=== PATIENT | female | born 1965 | race Caucasian/White ===

== ENCOUNTER 2016-11-14 00:15 | Emergency (ER) | payer SELFPAY ==
[2016-11-14 00:33] VITALS: BP 138/73; TEMP 98.6; O2SAT 98
--- NOTE | 2016-11-14 00:34 | ED.PDOC ---
History of Present Illness - General Chief Complaint: ENT Problem Stated Complaint: Bug in ear Time Seen by Provider: 11/14/16 00:25 Source: patient Exam Limitations: no limitations - History of Present Illness Initial Comments: PT CONCERNED SHE MIGHT HAVE A BUG IN HER LEFT EAR. IT FEELS IRRITATED TONIGHT. Timing/Duration: this evening Severity: moderate EENT Location: ear (L) Prearrival Treatment: no prearrival treatment Improving Factors: nothing Worsening Factors: nothing Associated Symptoms: denies symptoms Review of Systems - Review of Systems Constitutional: States: no symptoms reported EENTM: Denies: ear discharge, nose congestion, throat pain Respiratory: States: no symptoms reported Cardiology: States: no symptoms reported Gastrointestinal/Abdominal: States: no symptoms reported Genitourinary: States: no symptoms reported Musculoskeletal: States: no symptoms reported Skin: States: no symptoms reported Neurological: States: no symptoms reported Endocrine: States: no symptoms reported Hematologic/Lymphatic: States: no symptoms reported All other Systems: Reviewed and Negative Past Medical History (General) - Patient Medical History Hx MRSA: Yes - Leg 2008; Buttock 2011 MRSA Source:: Wound Family Medical History - Family History Mother Family History: Unknown Physical Exam - Physical Exam General Appearance: Alert, Obese Eye Exam: bilateral normal Ear Exam: bilateral ear: auricle normal, canal normal, TM normal - EXCEPT MODERATE BL CERMINOSIS. Nasal Exam: normal inspection Throat Exam: normal mouth inspection, pharynx normal Neck: non-tender, supple Cardiovascular/Respiratory: regular rate, rhythm, no M/R/G Neurologic: plater helper II-XII nml as tested, no motor/sensory deficits, alert Skin Exam: normal color Progress - Progress Progress: 11/14/16 00:41 NO FOREIGN BODY IN EAR, JUST MODERATE CERUMEN. Departure - Departure Clinical Impression: Ceruminosis Disposition: Discharge to Home or Self Care Condition: Good Instructions: DI for Cerumen Impaction Diet: resume usual diet Activity: increase activity as tolerated Referrals: Glenda Cabrera NP [Primary Care Provider] - 1-2 Weeks Additional Instructions: Please instill Debrox (earwax removal) drops into each ear and flush with warm water daily for 1 week to remove the wax.
== END 2016-11-14 00:50 | disposition home or self-care (01) ==
LOC: ER 00:15
DX: H61.23 Impacted cerumen, bilateral (principal)

== ENCOUNTER → 2019-12-07 | Outpatient (CLI) | payer SELFPAY | LOC: YCFC.O 09:27 | PROVIDERS: ATTEND Nurse Practitioner | DX: R79.89 Other specified abnormal findings of blood chemistry (principal); E11.9 Type 2 diabetes mellitus without complications; R03.0 Elevated blood-pressure reading, without diagnosis of hypertension ==

== ENCOUNTER → 2020-03-01 | Outpatient (CLI) | payer SELFPAY | LOC: YCFC.O 08:07 | PROVIDERS: ATTEND Family Medicine | DX: E02 Subclinical iodine-deficiency hypothyroidism (principal) ==

== ENCOUNTER 2020-03-18 09:29 | Emergency (ER) | payer SELFPAY ==
[2020-03-18] MEDS ORDERED: SODIUM CHLORIDE 0.9% (FLUSH) 10 ML SYG IV PRN (09:37)
[2020-03-18] MEDS ORDERED: SODIUM CHLORIDE 0.9% 1000ML 1,000 ML IVS ONE (09:53)
--- NOTE | 2020-03-18 09:55 | ED.PDOC ---
History of Present Illness - General Time Seen by Provider: 03/18/20 09:37 Source: patient, RN notes reviewed, Vital Signs reviewed Exam Limitations: no limitations - History of Present Illness Initial Comments: 54 yo F with pmh of HTN and DM comes in with intermittent reflux symptoms for the past three days. States she was here just to have her bp, check because at home it was 170/89. Is compliant with medication. no headache, change in vision, shortness of breath. no current chest pain. Takes antacid which does help her symptoms. States chest pain in substernal when it does occur, without radiation or association of other symptoms. no fever, no cough. Both parents healthy without heart disease. states she is dehydrated often. denies black orbloody bm. Timing/Duration: days Severity/Quality: ingestion Location: substernal Chest Pain Radiation: no radiation Activities at Onset: rest Prior Chest Pain/Cardiac Workup: no prior chest pain, no prior cardiac workup Allergies/Adverse Reactions: Allergies NO KNOWN ALLERGY Allergy (Verified 03/18/20 10:05) Home Medications: Ambulatory Orders Famotidine 20 mg PO BID PRN #20 tab 03/18/20 Review of Systems - Review of Systems Constitutional: Denies: chills, fever, malaise EENTM: Denies: blurred vision, throat pain Respiratory: Denies: cough, short of breath Cardiology: States: chest pain. Denies: edema, palpitations, syncope Gastrointestinal/Abdominal: States: other - heart burn. Denies: abdominal pain, diarrhea, nausea, vomiting Genitourinary: Denies: dysuria, frequency Musculoskeletal: Denies: back pain, muscle pain Skin: Denies: rash Neurological: Denies: headache, numbness, weakness Endocrine: Denies: unexplained weight gain, unexplained weight loss Hematologic/Lymphatic: Denies: blood clots, easy bleeding, easy bruising Past Medical History (General) - Patient Medical History Hx Seizures: No Hx Stroke: No Hx Dementia: No Hx Asthma: No Hx of COPD: No Hx Cardiac Disorders: No Hx Congestive Heart Failure: No Hx Pacemaker: No Hx Hypertension: Yes Hx Diabetes: Yes Hx Renal Disease: No Hx Cancer: No Hx of HIV: No Hx Hepatitis B: No Hx Hepatitis C: No Hx MRSA: Yes - Leg 2008; Buttock 2011 MRSA Source:: Wound - Social History Hx Alcohol Use: No Family Medical History - Family History Mother Living Status: Still Living Hx Cardiac Disease: No Hx Family Diabetes: Yes - father Hx Family;Other: high cholesterol - mother Physical Exam - Physical Exam General Appearance: Alert, Comfortable, No apparent distress, Obese, Well Developed, Well Groomed, Well Hydrated, Well Nourished Eyes, Ears, Nose, Throat Exam: normal ENT inspection Neck: non-tender, full range of motion, supple, normal inspection Respiratory: chest non-tender, lungs clear, normal breath sounds, no respiratory distress, no accessory muscle use Cardiovascular/Chest: normal peripheral pulses, regular rate, rhythm, no edema, no gallop, no JVD, no murmur Peripheral Pulses: radial,right: 2+, radial,left: 2+, dorsalis pedis,right: 2+, dorsalis pedis,left: 2+ Gastrointestinal/Abdominal: normal bowel sounds, non tender, soft Extremity: normal range of motion, non-tender, normal inspection, no pedal edema, no calf tenderness, normal capillary refill Neurologic: no motor/sensory deficits, alert, normal mood/affect, oriented x 3 Skin Exam: normal color, warm/dry Progress - Progress Progress: 03/18/20 10:41 cardiac score 3. 03/18/20 12:32 partial ddx: pneumonia, reflux, cad, pancreatitis, gallstones, others considered. currently no symptoms of chest pain or reflux only came in due to blood pressure being 170. currently 139 systolic. The data reviewed when caring for this patient included: nurse notes, prior records, etc. The history and assessments from nurses notes were reviewed and considered, and the patient's home medication list was also reviewed and considered. My assessment and the results of testing completed here in the ED were discussed with the patient/family. All questions were answered, and they express understanding of my assessment and the plan. They have been instructed to return if their symptoms worsen, and have been asked to follow up with their primary care physician to recheck today's presenting complaint. Strict return precautions given. I have reviewed medication, benefits, alternatives and side effects. Patient decided to proceed with medication. Bessie Sanders DO #[id number] - Results/Orders Results/Orders: 03/18/20 09:37 Sodium Chloride 0.9% (Flush) [Saline Flush Syringe] 10 ml IV PRN PRN EKG Stat Pulse Ox Stat Laboratory Results WBC 7.9 K/mm3 (4.8-10.8) 03/18/20 09:44 RBC 5.01 M/mm3 (4.20-5.40) 03/18/20 09:44 Hgb 14.1 gm/dL (12.0-16.0) 03/18/20 09:44 Hct 42.4 % (36.0-47.0) 03/18/20 09:44 MCV 84.7 fl (81.0-99.0) 03/18/20 09:44 MCH 28.2 pg (27.0-31.0) 03/18/20 09:44 MCHC 33.3 g/dL (33.0-37.0) 03/18/20 09:44 RDW 13.9 % (11.5-14.5) 03/18/20 09:44 Plt Count 285 K/mm3 (130-400) 03/18/20 09:44 MPV 8.8 fl (7.40-10.4) 03/18/20 09:44 Absolute Neuts (auto) 5.90 K/uL (1.8-6.8) 03/18/20 09:44 Absolute Lymphs (auto) 1.40 K/uL (1.0-3.4) 03/18/20 09:44 Absolute Monos (auto) 0.50 K/uL (0.2-0.8) 03/18/20 09:44 Absolute Eos (auto) 0.20 K/uL (0.0-0.4) 03/18/20 09:44 Absolute Basos (auto) 0.10 K/uL (0.0-0.1) 03/18/20 09:44 Neutrophils % 74.2 % (42.0-78.0) 03/18/20 09:44 Lymphocytes % 17.2 % (20.0-50.0) L 03/18/20 09:44 Monocytes % 6.0 % (2.0-9.0) 03/18/20 09:44 Eosinophils % 1.9 % (1.0-5.0) 03/18/20 09:44 Basophils % 0.7 % (0.0-2.0) 03/18/20 09:44 PT 10.1 SECONDS (9.0-10.9) 03/18/20 09:44 INR 1.02 (0.9-1.15) 03/18/20 09:44 PTT (SP) 24.0 SECONDS (21.8-31.6) 03/18/20 09:44 Sodium 137 mmol/L (135-145) 03/18/20 09:44 Potassium 3.8 mmol/L (3.6-5.0) 03/18/20 09:44 Chloride 100 mmol/L (101-111) L 03/18/20 09:44 Carbon Dioxide 24 mmol/L (21-31) 03/18/20 09:44 Anion Gap 16.8 (12-18) 03/18/20 09:44 BUN 13 mg/dL (7-18) 03/18/20 09:44 Creatinine 0.81 mg/dL (0.6-1.3) 03/18/20 09:44 BUN/Creatinine Ratio 16.0 (10-20) 03/18/20 09:44 Random Glucose 238 mg/dL (70-105) H 03/18/20 09:44 Serum Osmolality 281.7 mOsm/L (275-295) 03/18/20 09:44 Calcium 9.3 mg/dL (8.4-10.2) 03/18/20 09:44 Total Bilirubin 0.8 mg/dL (0.2-1.0) 03/18/20 09:44 AST 38 IU/L (10-42) 03/18/20 09:44 ALT 33 IU/L (10-60) 03/18/20 09:44 Alkaline Phosphatase 64 IU/L (42-121) 03/18/20 09:44 Troponin I < 0.02 ng/mL (0.01-0.05) 03/18/20 11:46 B-Natriuretic Peptide 36.2 pg/ml (0-100) 03/18/20 09:44 Serum Total Protein 8.3 gm/dL (6.4-8.2) H 03/18/20 09:44 Albumin 4.1 g/dl (3.2-5.5) 03/18/20 09:44 Globulin 4.2 gm/dL (2.3-3.5) H 03/18/20 09:44 Albumin/Globulin Ratio 1.0 (1.1-1.9) L 03/18/20 09:44 - EKG/XRAY/CT EKG: Sinus - HR 88 Comments: normal intevals, no acute ischemic changes. XRAY: chest - no acute cardiopulmonary pathology Departure - Departure Clinical Impression: Chest pain Qualifiers: Chest pain type: unspecified Qualified Code(s): R07.9 - Chest pain, unspecified Hypertension Qualifiers: Hypertension type: unspecified Qualified Code(s): I10 - Essential (primary) hypertension Hyperglycemia due to type 2 diabetes mellitus Qualifiers: Diabetes mellitus assisted insulin use: without assisted use Qualified Code(s): E11.65 - Type 2 diabetes mellitus with hyperglycemia Time of Disposition: 12:10 Disposition: Discharge to Home or Self Care Instructions: Chest Pain, Acid Reflux and GERD in Adults (DC) Diet: diabetic diet, other - Avoid chocolate, alcohol, spicy foods. Activity: increase activity as tolerated Referrals: Digna Delaney MD [Primary Care Provider] - 1-2 Days Prescriptions: Famotidine 20 mg PO BID PRN #20 tab PRN Reason: Indigestion Home Medications: Ambulatory Orders Famotidine 20 mg PO BID PRN #20 tab 03/18/20
--- NOTE | 2020-03-18 09:56 | RAD ---
EXAM DESCRIPTION: Chest,1 View CLINICAL HISTORY: 54 years Female, cp COMPARISON: None. TECHNIQUE: AP portable chest. FINDINGS: Heart size is normal with normal pulmonary vascularity. No consolidating infiltrate. No pulmonary mass or worrisome nodule. No pneumothorax or pleural effusion. Bones are unremarkable. IMPRESSION: No acute process is identified in the chest. Electronically signed by: Lalito Faith MD 03/18/2020 9:54 AM [employer]
[2020-03-18 12:50] VITALS: O2SAT 96
[2020-03-18 12:52] VITALS: BP 114/67; TEMP 97.7
== END 2020-03-18 12:32 | disposition home or self-care (01) ==
LOC: ER 09:29
DX: R07.9 Chest pain, unspecified (principal); I10 Essential (primary) hypertension; E11.65 Type 2 diabetes mellitus with hyperglycemia; R12 Heartburn